=== PATIENT | male | born 1945 | race Caucasian/White ===

== ENCOUNTER 2024-12-14 11:26 | Emergency (ER) | payer MEDICARE ==
[~2024-12-14] VITALS: Ht 167.6 cm; Wt 81.6 kg
[2024-12-14 12:01] LABS: IMMATURE GRANULOCYTE ABSOLUTE 0.04 K/uL (0-1); NUCLEATED RED BLOOD CELLS 0.0 % (0.0-0.19); PLATELET COUNT (AUTO) 330 K/uL (130-400); RED BLOOD CELL COUNT(AUTO) 4.68 MIL/uL (4.50-6.20); RED CELL DISTRIBUTION WIDTH 14.8 % (11.0-15.5); WHITE BLOOD COUNT (AUTO) 9.9 K/uL (4.8-10.8)
--- NOTE | 2024-12-14 12:01 | ERN ---
General Chief Complaint: Dizzy/Light Headed Stated Complaint: DIZZINESS Time Seen by MD: 11:29 Source: patient History of Present Illness Initial Comments In his is a 79-year-old male coming in with multiple complaints. Per patient he has been having dizziness for six months long with this he has been having generalized body weakness. Patient has not seen a doctor in multiple years. Allergies: Coded Allergies: No Known Drug Allergies (Unverified Allergy, Unknown, 12/14/24) Past Medical History Past Medical History: No Pertinent History Past Surgical History: None ROS Dictation CONSTITUTIONAL: No chills, no fever, weakness, no diaphoresis, malaise. HEAD/FACE: No signs of trauma. EENT: No eye pain, no blurred vision, no tearing, no double vision, no ear pain, no ear discharge, no nose pain, no nasal congestion, no throat pain, no throat swelling, no mouth pain. RESPIRATORY: No cough, no orthopnea, no SOB, no stridor, no wheezing. CARDIOVASCULAR: No chest pain, no edema, no palpitations, no syncope. GASTROINTESTINAL/ABDOMINAL: No abdominal pain, no constipation, no diarrhea, no nausea, no vomiting. GENITOURINARY: No abnormal discharge, no dysuria, no frequent urination, no hematuria. No complaints of pain in the genitals. MUSCULOSKELETAL: No back pain, no gout, no joint pain, no joint swelling, no muscle pain, no muscle stiffness, no neck pain. INTEGUMENTARY: No change in color, no change in hair/nails, no dryness, no lesion, no lumps, no rash. NEUROLOGICAL/PSYCH: No anxiety, not depressed, no emotional problem, no headache, no numbness, no pre-existing deficit, no history of seizures, no tremors, no weakness. HEMATOLOGIC/LYMPHATIC: Not anemic, no history of blood clots, no apparent bleeding, no bruising, glands not swollen. All Systems Negative, Except as Noted. Physical Exam Physical Exam Dictation VITAL SIGNS: Reviewed. GENERAL APPEARANCE: Alert, oriented x3, no acute distress, obese. HEAD AND FACE: Non-traumatic. EYES: PERRL, pink conjunctivas, eyelid no trauma, anterior chamber clear. EARS: Pinnas intact and no signs of trauma or erythema. Ear canals clear and no discharge. TMs no erythema. NOSE: No discharge, no bleeding. OROPHARYNX: Mouth normal, teeth no caries, tongue pink. Pharynx clear, no erythema. Tonsils no exudates, no abscesses noted. Mucous membrane moist. NECK: Supple, non-tender, no thyromegaly, no masses, no JVD, no bruits. BREAST: Deferred. CHEST: No tenderness, no crepitus, no paradoxical movement, no retractions. LUNGS: Clear, well-ventilated, symmetric, no rales, no wheezing, no rhonchi, no stridor, good breath sounds bilaterally. HEART: Regular rate, regular rhythm, no murmur, no gallops. VASCULAR: No peripheral edema. ABDOMEN: Soft, positive bowel sounds, nondistended, no guarding, nontender, no rebound, no masses no hepatomegaly, no splenomegaly, no Willard's sign, no hernias. RECTAL: Deferred. GENITAL: Deferred. NEUROLOGICAL: Normal speech, gross motor function intact, gross sensory function intact. MUSCULOSKELETAL: Neck nontender, full range of motion, back nontender, full range of motion. EXTREMITIES: Nontender, full range of motion. SKIN: Color pink, dry, no turgor, no rash, no lacerations, no abrasions, no contusions. LYMPHATICS: Deferred. Results Laboratory and Microbiology Lab and Micro Result Laboratory Tests Test 12/14/24 11:49 White Blood Count 9.9 K/uL (4.8-10.8) Red Blood Count 4.68 MIL/uL (4.50-6.20) Hemoglobin 14.5 g/dL (14.0-18.0) Hematocrit 42.1 % (42-54) Mean Corpuscular Volume 90.0 fL (79-99) Mean Corpuscular Hemoglobin 31.0 pg (27.0-33.0) Mean Corpuscular Hemoglobin Concent 34.4 g/dL (32.0-36.0) Red Cell Distribution Width 14.8 % (11.0-15.5) Platelet Count 330 K/uL (130-400) Mean Platelet Volume 9.1 fL (7.5-10.5) Immature Granulocyte % (Auto) 0.4 % (0-1) Neutrophils (%) (Auto) 61.8 % (40.0-77.0) Lymphocytes (%) (Auto) 27.9 % (21.0-51.0) Monocytes (%) (Auto) 6.9 % (3.0-13.0) Eosinophils (%) (Auto) 1.7 % (0.0-8.0) Basophils (%) (Auto) 1.3 % (0.0-5.0) Neutrophils # (Auto) 6.1 K/uL (1.8-7.7) Lymphocytes # (Auto) 2.8 K/uL (1.0-4.8) Monocytes # (Auto) 0.7 K/uL (0.1-1.0) Eosinophils # (Auto) 0.17 K/uL (0.00-0.70) Basophils # (Auto) 0.13 K/uL (0.00-0.20) Absolute Immature Granulocyte (auto 0.04 K/uL (0-1) Nucleated Red Blood Cells 0.0 % (0.0-0.19) Sodium Level 130 mmol/L (136-145) L Potassium Level 3.6 mmol/L (3.5-5.1) Chloride Level 96 mmol/L (101-111) L Carbon Dioxide Level 26 mmol/L (21-32) Blood Urea Nitrogen 13 mg/dL (7-18) Creatinine 1.0 mg/dL (0.5-1.3) Glomerular Filtration Rate Calc 78 mL/min (>90) Random Glucose 123 mg/dL (70-105) H Total Calcium 9.4 mg/dL (8.5-10.1) Magnesium Level 1.60 mg/dL (1.80-2.40) L Total Creatine Kinase 35 U/L (21-232) Troponin I High Sensitivity 10 ng/L (4-75) Labs Reviewed?: Yes EKG/XRAY/US/CT/MRI EKG Comment 12/14/2024 time 11:49 a.m. Ventricular rate 74 Sinus rhythm [place] [address] wave elevation or depression CT Scan Comment [place] [id number] [address] IMAGING REPORT Addendum PATIENT: KENYETTA MURRELL MR#: [id number] : 1945 SEX: M AGE: 79 LOCATION: [facility] ORDER [id number] STATUS: REG ER REPORT#: [id number] SERVICE 1138 REASON: dizzyness ORDERING PHYSICIAN: SHLOMO TORRES MD PROCEDURE: HEAD WO - CT HEAD/BRAIN W/O CONTRAST ADDENDUM REPORT ADDENDUM: Results were shared by telephone at 1:26 pm on 12-14-24 and acknowledged by DEBIT AGENT Mr.Jack Rodriguez /[place] EXAM: CT Head Without IV contrast. CLINICAL HISTORY: dizzyness TECHNIQUE: Axial computed tomography images of the head/brain without intravenous contrast. COMPARISON: None provided. FINDINGS: BRAIN: No acute bleed or infarct. Chronic ischemic and atrophic changes. VENTRICLES: No hydrocephalus. ORBITS: The orbits are unremarkable. SINUSES AND MASTOIDS: The paranasal sinuses and mastoid air cells are clear. BONES: No fracture. SOFT TISSUES: 2.2 x 1.5 cm soft tissue mass in the sella which likely represents a pituitary adenoma. Further evaluation with MRI is recommended. IMPRESSION: 1. No acute bleed or infarct. Chronic ischemic and atrophic changes. 2. 2.2 x 1.5 cm soft tissue mass in the sella which likely represents a pituitary adenoma. Further evaluation with MRI is recommended. /[place] DICTATED BY: SCARLETT GARZA MD DATE: 12/14/24 1329 ELECTRONICALLY SIGNED BY: DATE: EXAM: CT Head Without IV contrast. CLINICAL HISTORY: dizzyness TECHNIQUE: Axial computed tomography images of the head/brain without intravenous contrast. COMPARISON: None provided. FINDINGS: BRAIN: No acute bleed or infarct. Chronic ischemic and atrophic changes. VENTRICLES: No hydrocephalus. ORBITS: The orbits are unremarkable. SINUSES AND MASTOIDS: The paranasal sinuses and mastoid air cells are clear. BONES: No fracture. SOFT TISSUES: 2.2 x 1.5 cm soft tissue mass in the sella which likely represents a pituitary adenoma. Further evaluation with MRI is recommended. IMPRESSION: 1. No acute bleed or infarct. Chronic ischemic and atrophic changes. 2. 2.2 x 1.5 cm soft tissue mass in the sella which likely represents a pituitary adenoma. Further evaluation with MRI is recommended. /[place] DICTATED BY: SCARLETT GARZA MD DATE: 12/14/241319 ELECTRONICALLY SIGNED BY: SCARLETT GARZA MD DATE: 12/14/24 132 [facility] MDM: Differential diagnosis: Vertigo, CVA, Rationale: Tests considered and ordered secondary to shared decision making include: labs, ECG and radiology Previous outside records reviewed: Old ER visits. Risk of complication and/or morbidity or mortality of patient management: None Medications-Per medication reconciliation Need for hospitalization: Patient does meet criteria for hospitalization. Need for emergency major/minor surgery: No There are no social concerns with this patient. Prescription drug management Prescriptions will include symptomatic care Patient's prior external medical records from other ER visits were reviewed by me as indicated. Prior testing and results from previous visits were reviewed. Prior tests were taken into account with medical decision making and resource utilization, independent historian/historians were used to obtain complete medical history. I independently interpreted the test that were performed, results were reviewed by me and considered findings on radiology if ordered. Medical management and examination interpretation discussions were had by me with other qualified healthcare professionals as indicated for the patient's care. He will be transferred to [facility] neurologist on-call accepts patient to be transferred to neurology floor under internal medicine. Dr. Domingo internal medicine accepts patient to be transferred to the neurology floor ED Course Orders Procedure Category Date Status Time Cbc With Differential LAB 12/14/24 Complete 11:38 Chest 1vw RAD 12/14/24 Resulted 11:38 12 Lead Ekg Tracing- EKG 12/14/24 Complete Technical 11:38 0.9%Nacl 1000ml (Ns PHA 12/14/24 Complete 1000ml) 12:00 Magnesium LAB 12/14/24 Complete 11:38 Creatine Kinase, Total LAB 12/14/24 Complete 11:38 Troponin I High LAB 12/14/24 Complete Sensitivity 11:38 Urinalysis Profile LAB 12/14/24 Logged 11:38 Basic Metabolic Panel LAB 12/14/24 Complete 11:38 Ct Head/Brain W/O CT 12/14/24 Resulted Contrast 11:38 Drug Screen Urine LAB 12/14/24 Logged 11:38 Current Medications Medications (Trade) Dose Ordered Sig/Bala Route PRN Reason Start Time Stop Time Status Last Admin Dose Admin Sodium Chloride 1,000 ml @ 0 mls/hr ONCE ONCE IV 12/14/24 12:00 12/14/24 12:01 DC 12/14/24 12:16 Vital Signs Date Time Temp Pulse Resp B/P (MAP) Pulse Ox O2 Delivery O2 Flow Rate FiO2 12/14/24 16:06 98.1 68 18 158/83 97 Room Air* 0 21 12/14/24 11:42 98.2 80 20 175/85 99 Room Air* 0 21 12/14/24 11:27 97.5 79 18 187/80 98 Room Air DX & DISP Disposition: Transfer Departure Impression: Primary Impression: CVA (cerebral vascular accident) Additional Impressions: Vertigo, Pituitary adenoma Condition: Stable Referrals: SELF,REFERRAL (PCP) SHLOMO TORRES MD Dec 14, 2024 12:01
[2024-12-14 12:15] LABS: CREATINE KINASE, TOTAL 35.0 U/L (21-232); CREATININE 1.0 mg/dL (0.5-1.3); GLOMERULAR FILTR. RATE CALC 78.0 mL/min (>90); GLUCOSE,RANDOM 123.0 mg/dL (70-105); SODIUM SERUM 130.0 mmol/L (136-145); UREA NITROGEN, BLOOD 13.0 mg/dL (7-18)
[2024-12-14] MEDS: 0.9%NACL 1000ML 1,000 ML IV ONE (12:16)
--- NOTE | 2024-12-14 12:21 | HMCIMG ---
EXAM: CT Head Without IV contrast. CLINICAL HISTORY: dizzyness TECHNIQUE: Axial computed tomography images of the head/brain without intravenous contrast. COMPARISON: None provided. FINDINGS: BRAIN: No acute bleed or infarct. Chronic ischemic and atrophic changes. VENTRICLES: No hydrocephalus. ORBITS: The orbits are unremarkable. SINUSES AND MASTOIDS: The paranasal sinuses and mastoid air cells are clear. BONES: No fracture. SOFT TISSUES: 2.2 x 1.5 cm soft tissue mass in the sella which likely represents a pituitary adenoma. Further evaluation with MRI is recommended. IMPRESSION: 1. No acute bleed or infarct. Chronic ischemic and atrophic changes. 2. 2.2 x 1.5 cm soft tissue mass in the sella which likely represents a pituitary adenoma. Further evaluation with MRI is recommended. /[place]
--- NOTE | 2024-12-14 12:43 | EKG ---
[facility] Test Date: 2024-12-14 Test Time: 11:49:05 Pat Name: KENYETTA MURRELL Department: ED Room: Gender: Customer Success Manager: [facility] : 1945 Requested By: SHLOMO TORRES Order Number: [id number] Reading MD: Elizabeth Crespo Measurements Intervals [place] Rate: 74 P: 60 LA: 187 QRS: 41 QRSD: 150 T: 24 QT: 466 QTc: 518 Interpretive Statements Sinus rhythm Right bundle branch block No previous ECG available for comparison Electronically Signed On 12-15-2024 12:35:33 CDT by Elizabeth Crespo Please click the below link to view image of tracing.
--- NOTE | 2024-12-14 14:16 | HMCIMG ---
EXAM: CR Chest, 1 View. CLINICAL HISTORY: cp COMPARISON: None provided. FINDINGS: LUNGS: There is no mass, infiltrate, or acute pulmonary abnormality. PLEURAL SPACES: No evidence of pleural effusion or pneumothorax. MEDIASTINUM: The cardiomediastinal silhouette is within normal limits. BONES: No aggressive appearing osseous lesion seen. IMPRESSION: No acute cardiopulmonary pathology is evident. /[place]
--- NOTE | 2024-12-14 15:22 | CONS ---
CONSULT NOTE: [facility] Note # Demographics Consult Type: General Neurology Patient Location: Emergency Room First Name: KENYETTA Last Name: NYASIA Gender: Male Facility: [facility] Time of Initial Page (Central Time): 12/14/2024 15:09 First Contact with Site (Central Time): 12/14/2024 15:09 # HPI History: 79M p/w worsening dizziness. worse in last couple of day. off balance while walking. CT showing pituitary mass pt has RLE weakness for unclear reasons. per family it's present for 6 months along with dizziness which is also present for 6 months. # Scores Time of exam and NIHSS (Central Time): 12/14/2024 15:14 Level of Consciousness 1a: [0] = Alert; keenly responsive LOC Questions 1b: [0] = Answers both questions correctly LOC Commands 1c: [0] = Performs both tasks correctly Best Gaze 2: [0] = Normal Visual 3: [0] = No visual loss Facial Palsy 4: [0] = Normal symmetrical movements Motor Arm Left 5a: [0] = No drift Motor Arm Right 5b: [0] = No drift Motor Leg Left 6a: [0] = No drift Motor Leg Right 6b: [2] = Some effort against gravity Limb Ataxia 7: [0] = Absent Sensory 8: [0] = Normal Best Language 9: [0] = No aphasia Dysarthria 10: [0] = Normal Extinction and Inattention 11: [0] = No abnormality NIHSS Total: 2 # Assessment Impression: - Vertigo pituatory mass could be incidental vs cause of pt symptoms. rule out posterior circ pathology like stroke. # Plan Imaging: (urgency: routine): - MRI Brain with AND without contrast - MR Angiogram Head without contrast - MR Angiogram Neck with contrast Other: - If patient has any neurological deterioration please call me back immediately - I have discussed my recommendations with the referring provider Additional Recommendations: further recs based on MRI/A. Reconsult on-call teleneuro once MRI done for further recs. may need neurosurgery consultation based on that # Logistics Attestation of consult completion: The patient is located at: [facility]. Facility staff participated in the visit. I performed this telemedicine visit from my offsite office utilizing interactive 2 way audio and visual telecommunication technology at the request of the onsite emergency room provider. Total time spent in telemedicine encounter: I spent 15 minutes reviewing clinical data and/or imaging, obtaining history, examining the patient, communicating with the onsite care team, and in preparation of this report. # Demographics First Name: KENYETTA Last Name: NYASIA Facility: [facility] ERICA GARCIA MD Dec 14, 2024 15:22
--- NOTE | 2024-12-14 16:15 | NUR ---
VERBAL ORDER RECEIVED BY ER MD TO TRANSFER PATIENT TO [facility]HER LEVEL OF CARE FOR NEUROLOGY SERVICES. TRANSFER REQUEST INITIATED
--- NOTE | 2024-12-14 17:08 | NUR ---
DAUGHTER SE STEPPED OUT AT THIS MOMENT. IF CHANGES ARISE, CALL HER AT [phone].
[2024-12-14 19:00] LABS: APPEARANCE,URINE CLEAR (CLEAR); GLUCOSE, URINE (UA) NEGATIVE (NEGATIVE); LEUKOCYTE ESTERASE ,URINE NEGATIVE Leu/uL (NEGATIVE); NITRATE,URINE NEGATIVE (NEGATIVE); OCCULT BLOOD,URINE NEGATIVE (NEGATIVE)
[2024-12-14 19:04] LABS: ADD UA MICROSCOPIC YES; OTHER CASTS, URINE 1 /LPF (None Seen)
[2024-12-14 19:08] LABS: AMPHET/METH SCREEN,URINE NEGATIVE (NEGATIVE); BARBITURATE SCREEN, URINE NEGATIVE (NEGATIVE); CANNABINOID SCREEN,URINE NEGATIVE (NEGATIVE); COCAINE SCREEN,URINE NEGATIVE (NEGATIVE)
--- NOTE | 2024-12-14 19:32 | NUR ---
ASSUMED PT CARE AT THIS TIME
--- NOTE | 2024-12-14 21:12 | NUR ---
ED MD MADE AWARE OF VS
--- NOTE | 2024-12-14 21:24 | NUR ---
SE (DAUGHTER) [place] ([place])
--- NOTE | 2024-12-14 22:02 | NUR ---
REPORT GIVEN TO NURSE ROOT FROM [facility] ROOM 1329
[2024-12-14 23:00] VITALS: BP 157/74; PULSE 72; RESP 18; TEMP 98; O2SAT 98
--- NOTE | 2024-12-14 23:03 | NUR ---
PATIENT LEAVING VIA EMS, IS IN NO DISTRESS AT THIS TIME
== END 2024-12-14 23:03 | disposition short-term general hospital (02) ==
LOC: EDBD 11:26 → EDH 11:26
DX: I63.9 Cerebral infarction, unspecified (principal); D35.2 Benign neoplasm of pituitary gland; I10 Essential (primary) hypertension; Z79.899 Other long term (current) drug therapy
CPT/HCPCS: 36415; 70450; 71045; 80048; 80305; 81001; 82550; 83735; 84484; 85025; 93005; 99285